=== PATIENT | male | born 1965 | race Caucasian/White ===

== ENCOUNTER 2017-01-05 21:25 | Emergency (ER) | payer MEDICARE, OTHER ==
--- NOTE | ~2017-01-05 | CT71 ---
[facility] A Service [facility] RADIOLOGY TEXT RESULTS PATIENT: JORGE TOM JR LOCATION: [facility] : 65 UNIT #: [id number] AGE: [address]: SCOTTY LANDERS APRN SEX: M ORDER DR: [id number] [id number] [place], [place] [address] [id number] E MR#: [id number] Acc #: [id number] NAME: JORGE TOM JR : 1965 SEX: M STUDY DATE/TIME: 01/06/2017 2:51 UNIT: [facility] ROOM: STUDY DESCRIPTION: CT Head Wo Contrast Attending Physician: Scotty Landers Aprn Ordering Physician: Scotty Landers Aprn Primary Care Physician: Primary Care Physician No MEDICAL IMAGING REPORT This report is preliminary unless electronic signature is present EXAM CT head without contrast INDICATION Head pain and dizziness after a fall today. PROCEDURE Unenhanced CT of the head. This CT exam was performed with one or more of the following radiation dose reduction techniques: automatic exposure control, adjustment of mA and/or kV according to patient size, and iterative reconstruction. COMPARISON 08/26/2015 FINDINGS No acute hemorrhage, abnormal mass effect, extraaxial fluid collection or hydrocephalus. No calvarial fracture. There is mucosal thickening in the right maxillary sinus. IMPRESSION 1. No acute intracranial findings. 2. Right maxillary sinus mucosal thickening. Dictated by... Remy Valdez M.D. THIS IS AN ELECTRONICALLY VERIFIED REPORT Remy Valdez M.D. at 01/06/2017 10:29 PM KACEY/tristian TD: 01/06/2017 08:44 [facility] A Service [facility] RADIOLOGY TEXT RESULTS PATIENT: JORGE TOM JR LOCATION: [facility] : 65 UNIT #: [id number] AGE: [address]: SCOTTY LANDERS APRN SEX: M ORDER DR: MERYL #: [id number] MEDICAL IMAGING REPORT Page 1 of 1 COPY
--- NOTE | ~2017-01-05 | CR282 ---
[facility] A Service of [facility] RADIOLOGY TEXT RESULTS PATIENT: JORGE TOM JR LOCATION: [facility] : 65 UNIT #: [id number] AGE: [address]: SCOTTY LANDERS APRN SEX: M ORDER DR: [id number] [address] [address] [id number] E MR#: [id number] Acc #: [id number] NAME: JORGE TOM JR : 1965 SEX: M STUDY DATE/TIME: 01/05/2017 21:53 UNIT: [facility] ROOM: STUDY DESCRIPTION: CR Wrist Min 3 View Rt Attending Physician: Scotty Landers Aprn Ordering Physician: Mihir Elder M.D. Primary Care Physician: Primary Care Physician No MEDICAL IMAGING REPORT This report is preliminary unless electronic signature is present EXAM Right wrist series INDICATION Right wrist pain after a fall today. PROCEDURE Three views of the right wrist. COMPARISON 02/05/2016. FINDINGS There is a comminuted fracture of the distal radius with extension to the articular surface. There is mild dorsal angulation of the fracture. No evidence for radiocarpal dislocation. There is a minimally-displaced ulnar styloid fracture. Callus is seen around the previously demonstrated fracture in the distal ulnar shaft. IMPRESSION 1. Acute comminuted and mildly dorsally displaced fracture of the distal radius with articular involvement. 2. Minimally-displaced ulnar styloid fracture. Dictated by... Remy Valdez M.D. THIS IS AN ELECTRONICALLY VERIFIED REPORT Remy Valdez M.D. at 01/06/2017 10:28 PM EED/kris TD: 01/06/2017 07:21 [facility] A Service [facility] RADIOLOGY TEXT RESULTS PATIENT: JORGE TOM JR LOCATION: [facility] : 65 UNIT #: [id number] AGE: [address]: SCOTTY LANDERS APRN SEX: M ORDER DR: MERYL #: [id number] MEDICAL IMAGING REPORT Page 1 of 1 COPY
--- NOTE | ~2017-01-05 | CT52 ---
[facility] A Service [facility] RADIOLOGY TEXT RESULTS PATIENT: JORGE TOM JR LOCATION: [facility] : 65 UNIT #: [id number] AGE: [address]: SCOTTY LANDERS APRN SEX: M ORDER DR: [id number] [address] [address] [id number] E MR#: [id number] Acc #: [id number] NAME: JORGE TOM JR : 1965 SEX: M STUDY DATE/TIME: 01/06/2017 3:01 UNIT: [facility] ROOM: STUDY DESCRIPTION: CT Cervical Spine Wo Cont Attending Physician: Scotty Landers Aprn Ordering Physician: Scotty Landers Aprn Primary Care Physician: No Primary Care Physician MEDICAL IMAGING REPORT This report is preliminary unless electronic signature is present EXAM CT cervical spine without contrast. INDICATIONS Neck pain after a fall tonight. PROCEDURE Unenhanced CT cervical spine. This CT exam was performed with one or more of the following radiation dose reduction techniques: automatic exposure control, adjustment of mA and/or kV according to patient size, and iterative reconstruction. COMPARISON 08/26/2015 FINDINGS Cervical bodies have preserved height. Alignment is preserved. Craniocervical junction and the dens are intact. Facet arthrosis right greater than left. No fracture. No critical central canal narrowing. IMPRESSION No acute findings. Dictated by... Remy Valdez M.D. THIS IS AN ELECTRONICALLY VERIFIED REPORT Remy Valdez M.D. at 01/06/2017 10:29 PM EED/aisha TD: 01/06/2017 08:45 JOB #: [id number] [facility] A Service [facility] RADIOLOGY TEXT RESULTS PATIENT: JORGE TOM JR LOCATION: [facility] : 65 UNIT #: [id number] AGE: [address]: SCOTTY LANDERS APRN SEX: M ORDER DR: MEDICAL IMAGING REPORT Page 1 of 1 COPY
--- NOTE | ~2017-01-05 | CR173 ---
[facility] A Service of [facility] RADIOLOGY TEXT RESULTS PATIENT: JORGE TOM JR LOCATION: [facility] : 65 UNIT #: [id number] AGE: [address]: SCOTTY LANDERS APRN SEX: M ORDER DR: [id number] [place], [place] [address] [id number] E MR#: [id number] Acc #: [id number] NAME: JORGE TOM JR : 1965 SEX: M STUDY DATE/TIME: 01/06/2017 3:04 UNIT: [facility] ROOM: STUDY DESCRIPTION: CR Knee 3 Views Rt Attending Physician: Scotty Landers Aprn Ordering Physician: Scotty Landers Aprn Primary Care Physician: Primary Care Physician No MEDICAL IMAGING REPORT This report is preliminary unless electronic signature is present EXAM Right knee series INDICATION Right knee pain after a fall today. PROCEDURE Three views right knee. COMPARISON None. FINDINGS No acute fracture or dislocation. IMPRESSION No acute findings. Dictated by... Remy Valdez M.D. THIS IS AN ELECTRONICALLY VERIFIED REPORT Remy Valdez M.D. at 01/06/2017 10:29 PM KACEY/kris TD: 01/06/2017 08:49 JOB #: [id number] MEDICAL IMAGING REPORT Page 1 of 1 COPY
== END 2017-01-06 05:45 | disposition home or self-care (01) ==
LOC: CED 21:25
DX: S52.501A Unspecified fracture of the lower end of right radius, initial encounter for closed fracture (principal); S52.611A Displaced fracture of right ulna styloid process, initial encounter for closed fracture; F17.210 Nicotine dependence, cigarettes, uncomplicated; W18.39XA Other fall on same level, initial encounter; Y92.009 Unspecified place in unspecified non-institutional (private) residence as the place of occurrence of the external cause
CPT/HCPCS: 29125; 70450; 72125; 73110; 73562; 99284

== ENCOUNTER 2017-01-26 13:22 | Emergency (ER) | payer MEDICARE, OTHER ==
[~2017-01-26] VITALS: Ht 170.2 cm; Wt 54.4 kg
--- NOTE | ~2017-01-26 | CR279 ---
[facility] A Service of [facility] RADIOLOGY TEXT RESULTS PATIENT: JORGE TOM JR LOCATION: [facility] : 65 UNIT #: [id number] AGE: [address]: Marianna Freire SEX: M ORDER DR: [id number] [facility] [address] [place], [place] [address] [id number] E MR#: [id number] Acc #: [id number] NAME: JORGE TOM JR : 1965 SEX: M STUDY DATE/TIME: 01/26/2017 14:10 UNIT: [facility] ROOM: STUDY DESCRIPTION: CR Wrist 2 View Rt Attending Physician: Marianna Freire P.A.-C. Ordering Physician: Marianna Freire P.A.-C. MEDICAL IMAGING REPORT This report is preliminary unless electronic signature is present EXAM Right wrist 01/26/2017 HISTORY 51-year-old male with right wrist pain and swelling for 2 weeks after falling out of a truck. Known right wrist fracture. COMPARISON Right wrist 01/05/2017. FINDINGS 3 views of the right wrist again demonstrate a healing transverse oblique fracture of the distal ulnar shaft. There is an un-united avulsion fracture of the ulnar styloid which is unchanged. No significant interval change in the appearance of the displaced, angulated intraarticular fracture of the distal radial metaphysis. No new fractures are identified. IMPRESSION 1. No significant interval change in mildly displaced and angulated articular fracture of the distal radial metaphysis. 2. No interval change in healing transverse oblique fracture of the distal ulnar shaft and un-united ulnar styloid fracture. Dictated by... Misha Parnell M.D. THIS IS AN ELECTRONICALLY VERIFIED REPORT Misha Parnell M.D. at 01/27/2017 2:36 PM ELAN/soledad TD: 01/26/2017 23:08 [facility] A Service of [facility] RADIOLOGY TEXT RESULTS PATIENT: JORGE TOM JR LOCATION: [place] : 65 UNIT #: [id number] AGE: [address]: Marianna Freire SEX: M ORDER DR: JOB #: [id number] MEDICAL IMAGING REPORT Page 1 of 1 COPY
== END 2017-01-26 14:55 | disposition home or self-care (01) ==
LOC: CED 13:22 → CFTX 13:22
DX: S59.201D Unspecified physeal fracture of lower end of radius, right arm, subsequent encounter for fracture with routine healing (principal); S52.611D Displaced fracture of right ulna styloid process, subsequent encounter for closed fracture with routine healing; F32.9 Major depressive disorder, single episode, unspecified; F17.210 Nicotine dependence, cigarettes, uncomplicated; X58.XXXD Exposure to other specified factors, subsequent encounter
CPT/HCPCS: 29125; 73100; 99283

== ENCOUNTER 2017-03-27 22:56 | Emergency (ER) | payer MEDICARE, OTHER ==
[~2017-03-27] VITALS: Ht 170.2 cm; Wt 61.2 kg
--- NOTE | ~2017-03-27 | CR282 ---
[facility] A Service of [facility] RADIOLOGY TEXT RESULTS PATIENT: JORGE TOM JR LOCATION: [facility] : 65 UNIT #: [id number] AGE: [address]: Velvet Champagne APRN SEX: M ORDER DR: [id number] [facility] [address] [place], [place] [address] [id number] E MR#: [id number] Acc #: [id number] NAME: JORGE TOM JR : 1965 SEX: M STUDY DATE/TIME: 03/27/2017 23:28 UNIT: [facility] ROOM: STUDY DESCRIPTION: CR Wrist Min 3 View Rt Attending Physician: Velvet Champagne A.P.R.N. Ordering Physician: Ed Mateo Murray M.D. Primary Care Physician: Primary Care Physician No MEDICAL IMAGING REPORT This report is preliminary unless electronic signature is present EXAM Right wrist, 03/27/2017 HISTORY 51-year-old male in the ED complaining of right wrist pain and swelling after a fall today. Previous wrist fractures. TECHNIQUE Three-view right wrist series. FINDINGS The examination again demonstrates a comminuted and dorsally displaced intraarticular fracture of the distal radius, without significant change since 01/26/2017. Old healed distal ulna fracture and old ununited ulnar styloid fracture again noted. No carpal wrist fracture or additional abnormality. IMPRESSION Previous fractures of the distal radius and ulna as noted. No significant change since 01/26/2017. Dictated by... Zeke Zamora M.D. THIS IS AN ELECTRONICALLY VERIFIED REPORT Zeke Zamora M.D. at 03/29/2017 6:02 AM KISHA/peter TD: 03/29/2017 00:27 JOB #: [id number] [facility] A Service of [facility] RADIOLOGY TEXT RESULTS PATIENT: JORGE TOM JR LOCATION: [facility] : 65 UNIT #: [id number] AGE: [address]: Velvet Champagne APRN SEX: M ORDER DR: MEDICAL IMAGING REPORT Page 1 of 1 COPY
== END 2017-03-28 02:00 | disposition home or self-care (01) ==
LOC: CED 22:56
DX: S63.501A Unspecified sprain of right wrist, initial encounter (principal); F17.200 Nicotine dependence, unspecified, uncomplicated; W19.XXXA Unspecified fall, initial encounter; Y92.009 Unspecified place in unspecified non-institutional (private) residence as the place of occurrence of the external cause
CPT/HCPCS: 29105; 73110; 96372; 99283; J1885